=== PATIENT | male | born 1985 | race Hispanic/Latino ===

== ENCOUNTER 2018-08-16 20:38 | Emergency (ER) | payer SELFPAY ==
[2018-08-16] MEDS ORDERED: Proparacaine 0.5% Opth 15 ML BOT ONE (21:36)
[2018-08-16] MEDS ORDERED: Fluorescein Opthalmic Strip ONE (21:36)
== END 2018-08-16 22:40 | disposition home or self-care (01) ==
LOC: ERS 20:38
DX: S05.01XA Injury of conjunctiva and corneal abrasion without foreign body, right eye, initial encounter (principal); I10 Essential (primary) hypertension; F17.200 Nicotine dependence, unspecified, uncomplicated; X58.XXXA Exposure to other specified factors, initial encounter
CPT/HCPCS: 99283

== ENCOUNTER 2020-11-19 08:18 | Emergency (ER) | payer SELFPAY ==
[2020-11-19] MEDS ORDERED: Acetaminophen 500 MG TAB ONE (08:48)
--- NOTE | 2020-11-19 09:01 | RAD ---
Portable frontal chest radiograph: 11/19/2020 COMPARISON: 07/04/2005 HISTORY: Nonproductive cough FINDINGS: There are areas of increased linear interstitial density in the perihilar regions and lung bases, new when compared to the prior examination, with a suggestion of bibasilar mild groundglass opacity. There is no pneumothorax or large volume pleural effusion. IMPRESSION: Interstitial and alveolar opacities bilaterally are suspicious for Covid pneumonia in the proper clinical setting.
[2020-11-19 14:23] LABS: SARS-CoV-2 PCR by NAA DETECTED (NotDetected)
== END 2020-11-19 10:07 | disposition home or self-care (01) ==
LOC: ERS 08:18
DX: U07.1 COVID-19 (principal); J12.82 Pneumonia due to coronavirus disease 2019; I10 Essential (primary) hypertension; F17.290 Nicotine dependence, other tobacco product, uncomplicated
CPT/HCPCS: 71045; 87635; U0003; U0005